=== PATIENT | female | born 1945 | race American Indian/Alaskan Native ===

== ENCOUNTER 2019-03-11 15:33 | Emergency (ER) | payer MEDICAID ==
[2019-03-11 15:57] VITALS: BP 163/82
--- NOTE | 2019-03-11 16:04 | Emergency Department Report ---
ED General Adult HPI - General Chief complaint: Dental/Oral Stated complaint: MOUTH/TONGUE PAIN Time Seen by Provider: 03/11/19 15:56 Source: patient Mode of arrival: Ambulatory Limitations: No Limitations - History of Present Illness Initial comments: Pt complains of right tongue pain x 4 weeks. States it started after biting her tongue. Denies any fever or oral swelling. Reports seeing her dentist and was prescribed magic mouth 4 weeks. States magic mouthwash helps but sore not resolving. +hx DM-states well controlled. -: Sudden - Related Data Previous Rx's Medication Instructions Recorded Last Taken Type Chlorhexidine Mouthwash [Peridex] 15 ml MM BID 10 Days #1 bottle 03/11/19 Unknown Rx Nystas/Diphen/Xyl Visc/Mylanta 10 ml PO Q4H PRN #1 bottle 03/11/19 Unknown Rx [Magic Mouthwash] Allergies Allergy/AdvReac Type Severity Reaction Status Date / Time No Known Allergies Allergy Unverified 03/11/19 15:35 ED Review of Systems ROS: Stated complaint: MOUTH/TONGUE PAIN Other details as noted in HPI Comment: All other systems reviewed and negative ENT: as per HPI ED Past Medical Hx - Past Medical History Previous Medical History?: Yes Hx Hypertension: Yes Hx Diabetes: Yes Hx of Cancer: Yes (breast) - Surgical History Past Surgical History?: Yes Hx Breast Surgery: Yes - Social History Smoking Status: Never Smoker Substance Use Type: None - Medications Home Medications: Home Medications Medication Instructions Recorded Confirmed Last Taken Type Chlorhexidine Mouthwash [Peridex] 15 ml MM BID 10 Days #1 bottle 03/11/19 Unknown Rx Nystas/Diphen/Xyl Visc/Mylanta 10 ml PO Q4H PRN #1 bottle 03/11/19 Unknown Rx [Magic Mouthwash] ED Physical Exam - General Limitations: No Limitations General appearance: alert, in no apparent distress - Head Head exam: Present: atraumatic, normocephalic - Eye Eye exam: Present: normal appearance - ENT ENT exam: Present: other (aphthous ulcer noted to right side of tongue with some surrounding erythema ) - Neck Neck exam: Present: normal inspection - Respiratory Respiratory exam: Present: normal lung sounds bilaterally. Absent: respiratory distress - Cardiovascular Cardiovascular Exam: Present: regular rate, normal rhythm. Absent: systolic murmur, diastolic murmur, rubs, gallop - GI/Abdominal GI/Abdominal exam: Present: soft, normal bowel sounds ED Course Vital Signs 03/11/19 15:55 Temperature 98.6 F Pulse Rate 82 Respiratory 17 Rate Blood Pressure 163/82 O2 Sat by Pulse 98 Oximetry ED Medical Decision Making - Medical Decision Making Here for tongue ulcer. Seen by dentist 4 weeks ago-not resolving with magic mouth wash. +DM. Denies fever. No swelling noted on exam. Pt states she has ENT follow up next week. Will d/c home with peridex and refill of magic mouthwash. Discussed strict return precautions in detail with pt who states understanding Critical care attestation.: If time is entered above; I have spent that time in minutes in the direct care of this critically ill patient, excluding procedure time. ED Disposition Clinical Impression: Aphthous ulcer Disposition: DC-01 TO HOME OR SELFCARE Is pt being admited?: No Condition: Stable Instructions: Canker Sores (ED) Additional Instructions: Please follow up with your Ear Nose Throat Doctor as scheduled Prescriptions: Nystas/Diphen/Xyl Visc/Mylanta [Magic Mouthwash] 10 ml PO Q4H PRN #1 bottle PRN Reason: Pain , Severe (7-10) Chlorhexidine Mouthwash [Peridex] 15 ml MM BID 10 Days #1 bottle
== END 2019-03-11 19:55 | disposition home or self-care (01) ==
LOC: ED 15:33
DX: K12.0 Recurrent oral aphthae (principal); I10 Essential (primary) hypertension; E11.9 Type 2 diabetes mellitus without complications; Z85.3 Personal history of malignant neoplasm of breast
CPT/HCPCS: 99282